=== PATIENT | male | born 1975 | race Caucasian/White ===

== ENCOUNTER 2017-06-16 22:31 | Emergency (ER) | payer OTHER ==
[~2017-06-16] VITALS: Ht 182.8 cm; Wt 92.5 kg
== END 2017-06-17 00:20 | disposition home or self-care (01) ==
LOC: ED 22:31
DX: S61.217A Laceration without foreign body of left little finger without damage to nail, initial encounter (principal); Z23 Encounter for immunization; Z88.0 Allergy status to penicillin; W26.0XXA Contact with knife, initial encounter; Y93.89 Activity, other specified; Y92.89 Other specified places as the place of occurrence of the external cause; Y99.8 Other external cause status